=== PATIENT | female | born 1985 | race Two or more races ===

== ENCOUNTER 2019-07-03 10:00 | Observation (INO) | payer OTHER ==
[~2019-07-03] VITALS: Ht 158 cm; Wt 73.5 kg
[2019-07-03 11:06] VITALS: BP 117/75
== END 2019-07-03 11:00 | disposition home or self-care (01) ==
LOC: 4S 10:00
PROVIDERS: ADMIT Obstetrics & Gynecology; ATTEND Obstetrics & Gynecology
DX: O36.5930 Maternal care for other known or suspected poor fetal growth, third trimester, not applicable or unspecified (principal); Z3A.38 38 weeks gestation of pregnancy

== ENCOUNTER 2019-07-06 10:14 | Inpatient (IN) | payer OTHER ==
[~2019-07-06] VITALS: Ht 157.5 cm; Wt 74.4 kg
[2019-07-06] MEDS ORDERED: RINGERS SOLUTION,LACTATED 1,000 ML IV PRN (10:26)
[2019-07-06] MEDS ORDERED: OXYTOCIN 30 UNITS/LACT RINGERS 500 ML IV ONE (10:26)
[2019-07-06] MEDS ORDERED: CITRIC ACID/SODIUM CITRATE 30 ML SOLUTION UDCUP PO PRN (10:30)
[2019-07-06] MEDS ORDERED: METHYLERGONOVINE MALEATE 0.2 MG/ML VIAL IM PRN (10:30)
[2019-07-06] MEDS ORDERED: METOCLOPRAMIDE HCL 5 MG/ML 2 ML VIAL IVP PRN (10:30)
[2019-07-06] MEDS ORDERED: OXYGEN THERAPY IH SCH (10:30)
[2019-07-06] MEDS ORDERED: FentaNYL CITRATE-PF 100 MCG/2 ML VIAL IVP PRN (10:30)
[2019-07-06] MEDS ORDERED: PREN-217 PO (10:42)
[2019-07-06 10:47] VITALS: BP 116/70
[2019-07-06 11:00] LABS: BASOPHILS % (AUTO) 0.4 % (0.0-2.0); EOSINOPHILS % (AUTO) 4.5 % (1.0-6.0); HEMATOCRIT 37.1 % (36-46); HEMOGLOBIN 12.7 g/dL (12.0-16.0); LYMPHOCYTES # (AUTO) 2.1 K/uL (1.0-4.8); LYMPHOCYTES % (AUTO) 20.3 % (22.0-44.0); MEAN CORPUSCULAR HEMOGLOBIN 31.3 pg (26.0-34.0); MEAN CORPUSCULAR HGB CONC 34.2 G/dL (31.0-37.0); MEAN CORPUSCULAR VOLUME 91 fL (80-100); MONOCYTES # (AUTO) 0.7 K/uL (0.1-1.0); MONOCYTES % (AUTO) 6.6 % (2.0-9.0); NEUTROPHILS # (AUTO) 7.1 K/uL (1.8-7.7); NEUTROPHILS % (AUTO) 68.2 % (40.0-70.0); PLATELET COUNT (AUTO)-OB 182 K/uL (150-450); RED BLOOD CELL COUNT(AUTO) 4.06 MIL/uL (4.00-5.20); RED CELL DISTRIBUTION WIDTH 13.5 % (11.5-14.5)
[2019-07-06] MEDS ORDERED: MISOPROSTOL 50 MCG TABLET PO ONE ×3 (11:15→21:15)
[2019-07-06] MEDS: RINGERS SOLUTION,LACTATED 1,000 ML IV SCH ×4 (11:35→23:43)
[2019-07-06] MEDS ORDERED: AMPICILLIN SODIUM 2 GM/NS 100 ML IV ONE (13:30)
[2019-07-06] MEDS: AMPICILLIN SODIUM 1 GM/NS 50 ML IV SCH ×2 (17:38→22:19)
[2019-07-06] MEDS ORDERED: ROPIVACAINE HCL/PF 0.2% 100 ML ED ONE (23:58)
[2019-07-07] MEDS ORDERED: DiphenhydrAMINE HCL 50 MG/ML VIAL IVP PRN (00:30)
[2019-07-07] MEDS ORDERED: ROPIVACAINE HCL/PF 0.2% 100 ML ED PRN (00:30)
[2019-07-07] MEDS ORDERED: ONDANSETRON HCL 4 MG/2 ML VIAL IVP PRN (00:30)
[2019-07-07] MEDS ORDERED: OXYTOCIN 30 UNITS/LACT RINGERS 500 ML IV PRN (01:06)
[2019-07-07] MEDS: AMPICILLIN SODIUM 1 GM/NS 50 ML IV SCH (02:13)
[2019-07-07] MEDS ORDERED: CeFAZolin 2 GM/DEXTROSE 50 ML IV ONE (03:45)
[2019-07-07] MEDS ORDERED: BENZOCAINE 20%/MENTHOL 56 GM SPRAY CANISTER TP PRN (04:00)
[2019-07-07] MEDS ORDERED: LANOLIN 7 GM OINTMENT TP PRN (04:00)
[2019-07-07] MEDS ORDERED: GLYCERIN/WITCH HAZEL LEAF 40 PADS JAR TP PRN (04:00)
[2019-07-07] MEDS ORDERED: ACETAMINOPHEN/CODEINE 300-30 MG TABLET PO PRN ×2 (04:00)
[2019-07-07] MEDS: IBUPROFEN 800 MG TABLET PO SCH ×3 (05:40→18:06)
[2019-07-07] MEDS: MAGNESIUM HYDROXIDE SUSPENSION 30 ML UDCUP PO SCH ×2 (09:50→21:16)
[2019-07-08] MEDS: IBUPROFEN 800 MG TABLET PO SCH ×3 (00:03→11:38)
[2019-07-08] MEDS: MAGNESIUM HYDROXIDE SUSPENSION 30 ML UDCUP PO SCH (08:38)
[2019-07-08] MEDS ORDERED: ACET-2247 PO (09:15)
[2019-07-08] MEDS ORDERED: IBUP-2070 PO (09:17)
[2019-07-08] MEDS ORDERED: DOCU-275 PO (09:18)
== END 2019-07-08 12:30 | disposition home or self-care (01) | DRG 807 ==
LOC: OBSVTOIN 10:14 → 4S 10:14
PROVIDERS: ADMIT Obstetrics & Gynecology; ATTEND Obstetrics & Gynecology
PROC: 10E0XZZ Delivery of Products of Conception, External Approach (ICD-10-PCS; principal; 2019-07-07)
PROC: 3E0R3BZ Introduction of Anesthetic Agent into Spinal Canal, Percutaneous Approach (ICD-10-PCS; 2019-07-07)
PROC: 00HU33Z Insertion of Infusion Device into Spinal Canal, Percutaneous Approach (ICD-10-PCS; 2019-07-07)
DX: O69.81X0 Labor and delivery complicated by cord around neck, without compression, not applicable or unspecified (principal); Z37.0 Single live birth; Z3A.39 39 weeks gestation of pregnancy
CPT/HCPCS: 86850; 86900; 86901; J0290; J0690; J2590; J2795; J7120